=== PATIENT | female | born 1980 | race Caucasian/White ===

== ENCOUNTER 2018-09-12 22:24 | Inpatient (IN) | payer OTHER ==
[2018-09-12] MEDS ORDERED: BISACODYL (EC) 5 MG TAB PO (23:00)
[2018-09-12] MEDS ORDERED: DOCUSATE SODIUM 100 MG CAP PO (23:00)
[2018-09-12] MEDS ORDERED: NACL 0.9% 3 ML SYG IV (23:00)
[2018-09-12] MEDS ORDERED: ONDANSETRON 4 MG INJ IV (23:00)
[2018-09-12] MEDS: HYDROCODONE/APAP (5/325) TAB PO (23:45)
[2018-09-12] MEDS: HEPARIN 5,000 UNIT/1 ML VIAL SC (23:47)
[2018-09-13 00:50] LABS: ADD MAN DIFF? NO
[2018-09-13 00:56] LABS: WHITE BLOOD COUNT 8.1 10^3/ul (4.8-10.8)
[2018-09-13 00:56] LABS: BASOPHILS % 0.4 % (0.0-2.0); EOSINOPHILS # 0.2 10^3/ul (0.0-0.5); EOSINOPHILS % 2.2 % (0.0-7.0); HEMATOCRIT 36.5 % (37.0-47.0); HEMOGLOBIN 12.4 g/dl (12.0-16.0); LYMPHOCYTES # 2.1 10^3/ul (0.8-2.9); LYMPHOCYTES % 26.3 % (15.0-51.0); MEAN CORPUSCULAR HEMOGLOBIN 29.5 pg (29.0-33.0); MEAN CORPUSCULAR VOLUME 86.7 fl (82.0-101.0); MEAN PLATELET VOLUME 9.5 fl (7.4-10.4); MONOCYTE # 0.6 10^3/ul (0.3-0.9); MONOCYTES % 7.9 % (0.0-11.0); NEUTROPHIL # 5.1 10^3/ul (1.6-7.5); PLATELET COUNT 420 10^3/UL (140-415); RED BLOOD COUNT 4.21 10^6/ul (4.20-5.40); RED CELL DISTRIBUTION WIDTH 13.3 % (11.5-14.5)
[2018-09-13 01:15] LABS: ALANINE AMINOTRANSFERASE 18 IU/L (13-69); ALBUMIN 3.8 g/dl (3.3-4.9); ALBUMIN/GLOBULIN RATIO 0.92; ALKALINE PHOSPHATASE 87 IU/L (42-121); ANION GAP 10 (5-13); ASPARTATE AMINO TRANSFERASE 24 IU/L (15-46); BILIRUBIN,INDIRECT 0.5 mg/dl (0-1.1); BILIRUBIN,TOTAL 0.5 mg/dl (0.2-1.3); BLOOD UREA NITROGEN 13 mg/dl (7-20); CALCIUM 9.3 mg/dl (8.4-10.2); CARBON DIOXIDE 29 mmol/L (21-31); CHLORIDE 103 mmol/L (97-110); Estimated GFR > 60 mL/min (>60); GLUCOSE 100 mg/dl (70-220); POTASSIUM 3.7 mmol/L (3.5-5.1); SODIUM 142 mmol/L (135-144); TOTAL PROTEIN 7.9 g/dl (6.1-8.1)
[2018-09-13 05:20] LABS: ADD MAN DIFF? NO
[2018-09-13 05:26] LABS: BASOPHILS % 0.3 % (0.0-2.0); EOSINOPHILS # 0.1 10^3/ul (0.0-0.5); EOSINOPHILS % 1.8 % (0.0-7.0); HEMATOCRIT 35.8 % (37.0-47.0); HEMOGLOBIN 12.1 g/dl (12.0-16.0); LYMPHOCYTES # 2.1 10^3/ul (0.8-2.9); LYMPHOCYTES % 26.3 % (15.0-51.0); MEAN CORPUSCULAR HEMOGLOBIN 29.2 pg (29.0-33.0); MEAN CORPUSCULAR HGB CONC 33.8 g/dl (32.0-37.0); MEAN CORPUSCULAR VOLUME 86.3 fl (82.0-101.0); MEAN PLATELET VOLUME 9.4 fl (7.4-10.4); MONOCYTE # 0.6 10^3/ul (0.3-0.9); MONOCYTES % 7.7 % (0.0-11.0); NEUTROPHILS % 63.6 % (39.0-77.0); PLATELET COUNT 407 10^3/UL (140-415); RED BLOOD COUNT 4.15 10^6/ul (4.20-5.40)
[2018-09-13 05:26] LABS: WHITE BLOOD COUNT 7.8 10^3/ul (4.8-10.8)
[2018-09-13 06:01] LABS: ALANINE AMINOTRANSFERASE 20 IU/L (13-69); ALBUMIN 3.6 g/dl (3.3-4.9); ALBUMIN/GLOBULIN RATIO 0.94; ALKALINE PHOSPHATASE 80 IU/L (42-121); ANION GAP 11 (5-13); ASPARTATE AMINO TRANSFERASE 24 IU/L (15-46); BILIRUBIN,INDIRECT 0.6 mg/dl (0-1.1); BILIRUBIN,TOTAL 0.6 mg/dl (0.2-1.3); BLOOD UREA NITROGEN 12 mg/dl (7-20); CALCIUM 9.1 mg/dl (8.4-10.2); CARBON DIOXIDE 28 mmol/L (21-31); CHLORIDE 104 mmol/L (97-110); CHOL/HDL RATIO 4.9 RATIO; CHOLESTEROL 129 mg/dl (100-200); CREATININE 0.68 mg/dl (0.44-1.00); Estimated GFR > 60 mL/min (>60); GLUCOSE 99 mg/dl (70-220); HDL CHOLESTEROL 26 mg/dl (34-82); LDL CHOLESTEROL,CALCULATED 81 mg/dl; POTASSIUM 3.6 mmol/L (3.5-5.1); SODIUM 143 mmol/L (135-144); TOTAL PROTEIN 7.4 g/dl (6.1-8.1); TRIGLYCERIDES 111 mg/dl (0-149)
[2018-09-13] MEDS: HYDROCODONE/APAP (5/325) TAB PO ×3 (06:01→20:36)
[2018-09-13] MEDS: HEPARIN 5,000 UNIT/1 ML VIAL SC ×3 (06:04→21:46)
[2018-09-13] MEDS: morphine SULFATE/PF (2 MG/2 ML) SYG IV ×3 (07:59→16:34)
[2018-09-13] MEDS: KETOROLAC 15 MG INJ IV (18:43)
[2018-09-14] MEDS: HYDROCODONE/APAP (5/325) TAB PO ×4 (03:20→23:43)
[2018-09-14] MEDS: HEPARIN 5,000 UNIT/1 ML VIAL SC ×3 (05:25→22:25)
[2018-09-14] MEDS: KETOROLAC 15 MG INJ IV ×3 (08:18→20:10)
[2018-09-14] MEDS: NYSTATIN 15 GM OINT TOP (22:00)
[2018-09-14] MEDS: ZOLPIDEM 5 MG TAB PO (22:25)
[2018-09-15] MEDS: KETOROLAC 15 MG INJ IV ×2 (07:01→07:07)
[2018-09-15] MEDS: HEPARIN 5,000 UNIT/1 ML VIAL SC ×3 (07:06→22:49)
[2018-09-15] MEDS: HYDROCODONE/APAP (5/325) TAB PO ×3 (09:19→22:45)
[2018-09-15] MEDS: NYSTATIN 15 GM OINT TOP ×2 (09:21→21:42)
[2018-09-15] MEDS: morphine (ER) 15 MG TAB PO (20:50)
[2018-09-16] MEDS: HYDROCODONE/APAP (5/325) TAB PO ×3 (05:12→19:48)
[2018-09-16] MEDS: HEPARIN 5,000 UNIT/1 ML VIAL SC ×3 (05:16→20:39)
[2018-09-16] MEDS: morphine (ER) 15 MG TAB PO ×2 (09:16→20:37)
[2018-09-16] MEDS: NYSTATIN 15 GM OINT TOP ×2 (09:17→21:07)
[2018-09-17] MEDS: HYDROCODONE/APAP (5/325) TAB PO ×3 (05:34→19:11)
[2018-09-17] MEDS: HEPARIN 5,000 UNIT/1 ML VIAL SC ×2 (05:37→13:30)
[2018-09-17] MEDS: ACETAMINOPHEN 325 MG TAB PO (08:06)
[2018-09-17] MEDS: NYSTATIN 15 GM OINT TOP ×2 (09:00→21:18)
[2018-09-17] MEDS: morphine (ER) 15 MG TAB PO ×2 (09:05→21:18)
[2018-09-18] MEDS: HYDROCODONE/APAP (5/325) TAB PO ×4 (01:50→19:32)
[2018-09-18] MEDS: morphine (ER) 15 MG TAB PO ×2 (09:01→20:05)
[2018-09-18] MEDS: NYSTATIN 15 GM OINT TOP ×2 (09:02→20:06)
[2018-09-18] MEDS: ENOXAPARIN 40 MG/0.4 ML SYG SC (09:10)
[2018-09-19] MEDS: HYDROCODONE/APAP (5/325) TAB PO ×3 (02:31→14:35)
[2018-09-19] MEDS: morphine (ER) 15 MG TAB PO (08:54)
[2018-09-19] MEDS: ENOXAPARIN 40 MG/0.4 ML SYG SC (08:54)
[2018-09-19] MEDS: NYSTATIN 15 GM OINT TOP ×3 (08:56→08:57)
== END 2018-09-19 17:55 | disposition short-term general hospital (02) | DRG 536 ==
LOC: MS1 22:24
DX: S32.402A Unspecified fracture of left acetabulum, initial encounter for closed fracture (principal); S32.509A Unspecified fracture of unspecified pubis, initial encounter for closed fracture; Z68.42 Body mass index [BMI] 45.0-49.9, adult; E66.01 Morbid (severe) obesity due to excess calories; Z71.3 Dietary counseling and surveillance
CPT/HCPCS: 74176; 80053; 80061; 83036; 83735; 84443; 84703; 85025; 90686; 97110; 97161; 97530